=== PATIENT | male | born 1945 | race Caucasian/White ===

== ENCOUNTER → 2019-03-23 | Day surgery (SDC) | payer MEDICARE, OTHER ==
[2019-03-20 14:22] LABS: BASOPHILS % 0.4 % (0.0-1.0); EOSINOPHILS # (AUTO) 0.2 (0.0-0.4); EOSINOPHILS % 3.4 % (0.0-6.0); HEMATOCRIT 44.8 % (38.2-49.6); HEMOGLOBIN 15.6 g/dL (14.0-18.0); LYMPHOCYTES # (AUTO) 1.6 (1.0-3.2); LYMPHOCYTES % 22.9 % (18.0-39.1); MEAN CORPUSCULAR HEMOGLOBIN 31.3 pg (28-32); MEAN CORPUSCULAR HGB CONC 34.8 g/dL (31-35); MONOCYTES # (AUTO) 0.5 (0.2-0.8); MONOCYTES % 7.3 % (4.4-11.3); NEUTROPHILS # (AUTO) 4.5 (2.1-6.9); NEUTROPHILS % 65.4 % (38.7-80.0); PLATELET COUNT 218 x10e3/uL (140-360); RED BLOOD COUNT 4.98 x10e6/uL (4.3-5.7); RED CELL DISTRIBUTION WIDTH 12.7 % (11.7-14.4)
[~2019-03-23] MED LIST: ADVAIR 250-501 EACH INH; ALLOPURINOL100 MG PO; AMLODIPINE BESYL5 MG PO; ASPIR 8181 MG PO; ATORVASTATIN CA20 MG PO; FENTANYL CITRATE/PF 100MCG/2 ML INJ ONE; GABAPENTIN300 MG PO; GLUCAGON FOR INJ 1 MG VIAL ONE; HYDROCHLOROTHIA25 MG PO; HYOSCYAMINE SULFATE 0.5 MG/ML INJ ONE; MICARDIS40 MG PO; MIDAZOLAM HCL 2 MG/2 ML VIAL ONE; MONTELUKAST SOD10 MG PO; MULTI-VITAMIN1 EACH PO; PRAMIPEXOLE DIHY1 MG PO; PROPOFOL IV EMULSION 10 MG/ML 50 ML VIAL ONE
--- OUTSIDE RECORDS SUMMARY | 2019-03-23 11:58 | XMS REPORT | Clinical Summary ---
Author Author [facility] Organization [facility] Address Unknown Phone Unavailable Care Team Providers Care [employer]s Recruiter Name Role Phone Bonnie Reeder MD PCP Allergies Comments Active Allergy Reactions Severity Noted Date IV Contrast Other Diarrhea, GI Low 09/06/2017 Intolerance Medications End Date Status Medication Sig Dispensed Refills Start Date Active hydrochlorothiazide Take 25 mg by 0 (HYDRODIURIL) 25 MG mouth once 6 tablet daily. Active multivitamin (THERAGRAN) Take 1 tablet 0 tablet by mouth daily. 06/26/2019 Active gabapentin (NEURONTIN) Take 1 tablet 90 tablet 3 600 mg tabletIndications: (600 mg 8 Neuropathy total) by mouth nightly. Active aspirin (ECOTRIN) 81 MG Take 81 mg by 0 enteric coated tablet mouth daily. 10/01/2019 Active telmisartan (MICARDIS) 40 Take 1 tablet 30 tablet 1 MG tablet (40 mg total) 9 by mouth daily. Active albuterol (ACCUNEB) 2.5 0 mg /3 mL (0.083 %) 9 nebulizer solution 11/21/2019 Active albuterol (PROAIR Inhale 2 1 Inhaler 6 HFA,PROVENTIL puffs every 6 9 HFA,VENTOLIN HFA) 90 (six) hours mcg/actuation as needed for inhalerIndications: Mild wheezing or intermittent asthma, shortness of unspecified whether breath. complicated Active amLODIPine (NORVASC) 5 mg daily. 0 tablet 9 12/10/2019 Active montelukast (SINGULAIR) Take 1 tablet 30 tablet 11 10 mg tablet (10 mg total) 9 by mouth nightly. Active fluticasone USE 1 180 each 3 propion-salmeterol INHALATION 9 (ADVAIR DISKUS) 250-50 TWICE A DAY mcg/dose DISKUSIndications: SOB (shortness of breath) Active atorvastatin (LIPITOR) 40 Take 1 tablet 90 tablet 3 MG tablet (40 mg total) 9 by mouth daily. Active pramipexole (MIRAPEX) 0.5 Take 1 tablet 150 tablet 3 MG tablet (0.5 mg) by 9 mouth in the morning and 1 tablet (0.5 mg) in noon, and 3 tablets (1.5 mg) at evening. 03/06/2019 Discontinued allopurinol (ZYLOPRIM) Take 100 mg 5 100 MG tablet by mouth once 6 daily. 06/26/2018 Discontinued gabapentin (NEURONTIN) TAKE 1 TO 2 5 300 MG capsule CAPSULES BY 6 MOUTH 3 TIMES A DAY 10/01/2018 Discontinued losartan (COZAAR) 50 MG Take 50 mg by 3 tablet mouth once 6 daily. 06/26/2018 Discontinued albuterol (ACCUNEB) 2.5 as needed. 0 mg /3 mL (0.083 %) 7 nebulizer solution 09/14/2018 atorvastatin (LIPITOR) 40 Take 1 tablet 30 tablet 3 MG tablet (40 mg total) 7 by mouth daily. 11/06/2018 amLODIPine (NORVASC) 5 mg Take 1 tablet 60 tablet 2 tablet (5 mg total) 8 by mouth daily. 05/31/2018 Discontinued ADVAIR DISKUS 250-50 USE 1 180 each 0 mcg/dose DISKUS INHALATION 8 TWICE A DAY 06/26/2018 Discontinued pramipexole (MIRAPEX) 0.5 PO QHS 90 tablet 11 MG tablet 8 09/26/2018 Discontinued fluticasone-salmeterol USE 1 180 each 0 (ADVAIR DISKUS) 250-50 INHALATION 8 mcg/dose DISKUS TWICE A DAY 06/26/2018 Discontinued fluticasone-salmeterol Inhale 2 0 (ADVAIR DISKUS) 250-50 puffs. 8 mcg/dose DISKUS 01/29/2019 Discontinued pramipexole (MIRAPEX) 1 Take 1 tablet 90 tablet 3 MG tabletIndications: RLS (1 mg total) 8 (restless legs syndrome) by mouth nightly. 01/31/2019 Discontinued fluticasone-salmeterol USE 1 180 each 0 (ADVAIR DISKUS) 250-50 INHALATION 9 mcg/dose TWICE A DAY DISKUSIndications: SOB (shortness of breath) 10/01/2018 Discontinued telmisartan (MICARDIS) 40 Take 1 tablet 90 tablet 3 MG tablet (40 mg total) 9 by mouth daily. 12/05/2018 Discontinued methylPREDNISolone 0 (MEDROL DOSEPAK) 4 mg 9 tablet 01/29/2019 Discontinued furosemide (LASIX) 20 mg 0 tablet 9 12/25/2018 Discontinued GUAIATUSSIN AC 10-100 0 mg/5 mL liquid 9 02/19/2019 Discontinued atorvastatin (LIPITOR) 40 0 MG tablet 9 11/26/2018 predniSONE (DELTASONE) 50 Take 1 tablet 5 tablet 0 mg tabletIndications: (50 mg total) 9 Mild intermittent asthma, by mouth unspecified whether daily for 5 complicated days. 12/05/2018 benzonatate (TESSALON) Take 1 42 capsule 0 200 MG capsule (200 9 capsuleIndications: Cough mg total) by mouth 3 (three) times a day as needed for cough for up to 14 days. 12/25/2018 Discontinued budesonide (RHINOCORT 2 sprays into 1 Bottle 3 ALLERGY) 32 mcg/actuation each nostril 9 nasal sprayIndications: daily. Post-nasal drip 02/20/2019 Discontinued pramipexole (MIRAPEX) 0.5 Take 1 tablet 150 tablet 0 MG tablet (0.5 mg) by 9 mouth in the morning and 1 tablet (0.5 mg) in noon, and 3 tablets (1.5 mg) at evening. 02/01/2019 Discontinued fluticasone USE 1 180 each 3 propion-salmeterol INHALATION 9 (ADVAIR DISKUS) 250-50 TWICE A DAY mcg/dose DISKUSIndications: SOB (shortness of breath) Active Problems Problem Noted Date Dilated aortic root 09/06/2017 Essential hypertension 08/22/2016 COPD (chronic obstructive pulmonary disease) 08/22/2016 Chest pain, atypical 08/22/2016 Cervical radiculopathy 08/22/2016 Mild intermittent asthma without complication 08/22/2016 Neuropathy of left phrenic nerve 08/22/2016 Calculus of kidney 08/22/2016 Benign non-nodular prostatic hyperplasia without lower urinary tract 08/22/2016 symptoms History of back surgery 08/22/2016 Obstructive sleep apnea Periodic limb movement disorder (PLMD) Prediabetes Hypertension Asthma Encounters Care Team Description Date Type Specialty Nadja Blum MD SOB (shortness of breath) (Primary Dx); Peripheral edema; Essential hypertension; Chronic bronchitis, unspecified chronic bronchitis type (HCC); Mild intermittent asthma without complication; Chest pain, atypical; Neuropathy of left phrenic nerve; Dilated aortic root (HCC); Benign non-nodular prostatic hyperplasia without lower urinary tract symptoms; Abdominal pain, unspecified abdominal location; Cervical radiculopathy; History of back surgery 03/06/2019 Office Visit Cardiology Sue Vance NP-C 02/26/2019 Telephone Neurology Delmi Stark MD 02/25/2019 Telephone Neurology Sue Vance NP-C 02/20/2019 Orders Only Neurology Delmi Stark MD 02/20/2019 Telephone Neurology Nadja Blum MD teleph 02/19/2019 Telephone Cardiology Janiya Nj [employer] II SOB (shortness of breath) 02/01/2019 Orders Only Pulmonology Janiya Nj [employer] II SOB (shortness of breath) 01/31/2019 Orders Only Pulmonology Sue Vance NP-C AMBER (obstructive sleep apnea) (Primary Dx) 01/29/2019 Office Visit Neurology Pascual Parks MD 01/29/2019 Telephone Pulmonology Pascual Parks MD 01/28/2019 Telephone Pulmonology Pascual Parks MD Moderate persistent asthma without complication 01/15/2019 Hospital Pulmonology Encounter Pascual Parks MD Moderate persistent asthma without complication (Primary Dx) 01/07/2019 Office Visit Pulmonology Delmi Stark MD Chronic sinusitis, unspecified location (Primary Dx); AMBER (obstructive sleep apnea); Peripheral polyneuropathy 12/25/2018 Office Visit Neurology Pascual Parks MD 12/19/2018 Telephone Pulmonology Pascual Parks MD Abnormal CXR (Primary Dx); Chronic obstructive asthma with acute exacerbation (HCC) 12/18/2018 Office Visit Pulmonology Pacsual Parks MD Chronic obstructive asthma with acute exacerbation (HCC) (Primary Dx) 12/10/2018 Office Visit Pulmonology Nadja Blum MD SOB (shortness of breath) (Primary Dx); Essential hypertension; Chronic bronchitis, unspecified chronic bronchitis type (HCC); Mild intermittent asthma without complication; Chest pain, atypical; Neuropathy of left phrenic nerve; Dilated aortic root (HCC); Benign non-nodular prostatic hyperplasia without lower urinary tract symptoms 12/05/2018 Office Visit Cardiology Bonnie Reeder MD 11/23/2018 Telephone Access Bonnie Reeder MD Mild intermittent asthma, unspecified whether complicated (Primary Dx); Bronchitis; Cough; Post-nasal drip 11/21/2018 Office Visit Family Medicine Brittany Rausch MA Med Refill 10/01/2018 Refill Cardiology Brittany Rausch MA Med Refill 10/01/2018 Refill Cardiology Delmi Stark MD SOB (shortness of breath) (Primary Dx) 09/26/2018 Telephone Neurology Nadja Blum MD Liver cyst; Abnormal abdominal ultrasound 08/13/2018 Hospital Radiology Encounter Brittany Rausch MA Liver cyst (Primary Dx); Abnormal abdominal ultrasound 08/10/2018 Orders Only Cardiology Brittany Rausch MA Liver cyst (Primary Dx); Abnormal abdominal ultrasound 08/07/2018 Orders Only Cardiology Nadja Blum MD Abdominal pain, unspecified abdominal location 07/31/2018 Hospital Radiology Encounter Nadja Blum MD Abdominal pain, unspecified abdominal location (Primary Dx); Essential hypertension; Chronic bronchitis, unspecified chronic bronchitis type (HCC); Mild intermittent asthma without complication; Benign non-nodular prostatic hyperplasia without lower urinary tract symptoms; Cervical radiculopathy; History of back surgery; Calculus of kidney; Chest pain, atypical; Neuropathy of left phrenic nerve; 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 06/05/2018 Telephone Cardiology Sue Vance NP-C 05/31/2018 Orders Only Neurology Delmi Stark MD 05/30/2018 Telephone Neurology Sue Vance NP-C 05/08/2018 Telephone Neurology Kenisha Bundy MD Monoclonal gammopathies 04/24/2018 Hospital Radiology Encounter Kenisha Bundy MD Monoclonal gammopathies (Primary Dx) 04/24/2018 Transcribe Access Orders Delmi Stark MD Abnormal serum protein test (Primary Dx) 04/12/2018 Office Visit Neurology after 03/22/2018 Family History Medical History Relation Name Comments Heart attack Father Cancer Maternal jaw Grandfather Heart attack Maternal Grandmother Glaucoma Mother Lymphoma Mother Osteoporosis Mother No Known Problems Paternal Grandfather No Known Problems Paternal Grandmother Relation Name Status Comments Father Maternal Grandfather Maternal Grandmother Mother Alive Paternal Grandfather Paternal Grandmother Social History Date Tobacco Use Types Packs/Day Years Used Quit: 2004 Former Smoker Cigarettes 1 Smokeless Tobacco: Never Used Alcohol Use Drinks/Week oz/Week Comments No Sex Assigned at Date Recorded Not on file Industry Job Start Date Occupation Not on file Not on file Not on file Travel End Travel History Travel Start No recent travel history available. Last Filed Vital Signs Time Taken Vital Sign Reading 03/06/2019 11:09 AM CDT Blood Pressure 120/68 03/06/2019 11:09 AM CDT Pulse 76 01/29/2019 9:14 AM CDT Temperature 36.8 C (98.3 F) 01/29/2019 9:14 AM CDT Respiratory Rate 20 03/06/2019 11:09 AM CDT Oxygen Saturation 95% - Inhaled Oxygen - Concentration 03/06/2019 11:09 AM CDT Weight 116 kg (255 lb) 03/06/2019 11:09 AM CDT Height 172.7 cm (5' 8") 03/06/2019 11:09 AM CDT Body Mass Index 38.77 Plan of Treatment Care Team Description Date [place] [address] [place] [address] [address] [place] [address] [phone] 04/09/2019 Office [place] [address] [place] [address] [address] [place] [address] [phone] 05/06/2019 Office [place] [address] [place] [address] [address] [place] [address] [phone] 05/09/2019 Office Visit Neurology Health Maintenance Due Date Last Done Comments COLONOSCOPY SCREENING 1995 SHINGLES VACCINES (#1) 1995 65+ PNEUMOCOCCAL VACCINE 2010 (1 of 2 - PCV13) INFLUENZA VACCINE 04/25/2019 06/29/2018 Procedures Comments Procedure Name Priority Date/Time Associated Diagnosis SPIROMETRY PRE AND POST Routine 01/15/2019 Moderate persistent WITH BRONCHILATOR, 2:46 PM CDT asthma without DIFFUSION, LUNG VOLUMES complication CT CHEST WO CONTRAST Routine 12/25/2018 Abnormal CXR 11:[address] SINUS WO CONTRAST Routine 12/25/2018 Chronic sinusitis, 11:48 AM CDT unspecified location IMMUNOGLOBULIN E Routine 12/18/2018 Chronic obstructive 11:50 AM CDT asthma with acute exacerbation (HCC) CBC WITH PLATELET AND Routine 12/18/2018 Chronic obstructive DIFFERENTIAL 11:50 AM CDT asthma with acute exacerbation (HCC) GRAM STAIN Routine 12/05/2018 1:14 PM CDT ESTIMATED GFR Routine 12/05/2018 1:09 PM CDT COMPREHENSIVE METABOLIC Routine 12/05/2018 SOB (shortness of breath) PANEL 1:09 PM CDT CBC HEMOGRAM Routine 12/05/2018 SOB (shortness of breath) 1:09 PM CDT B NATRIURETIC PEPTIDE Routine 12/05/2018 SOB (shortness of breath) 1:09 PM CDT URINE CULTURE SCREEN Routine 12/05/2018 1:09 PM CDT XR CHEST 2 VW Routine 11/21/2018 Bronchitis 10:46 AM [facility] Cough POC CREATININE Routine 08/13/2018 12:13 PM [facility] [employer] ESTIMATED GFR Routine 08/13/2018 12:[address] ABDOMEN W CONTRAST Routine 08/13/2018 Liver cyst 11:40 AM [facility] [employer] Abnormal abdominal ultrasound US ABDOMEN COMPLETE Routine 07/31/2018 Abdominal pain, 9:52 AM [facility] [employer] unspecified abdominal location CT ANGIOGRAM CHEST W WO Routine 07/03/2018 Thoracic ascending aortic CONTRAST 1:02 PM CDT aneurysm (HCC) ZZESTIMATED GFR Routine 06/04/2018 9:14 AM CDT COMPREHENSIVE METABOLIC Routine 06/04/2018 Tiredness PANEL 9:14 AM CDT Decreased libido Asymptomatic bacteriuria in , with delivery CBC HEMOGRAM Routine 06/04/2018 Tiredness 9:14 AM CDT Decreased libido Asymptomatic bacteriuria in , with delivery TESTOSTERONE Routine 06/04/2018 Tiredness 9:14 AM CDT Decreased libido Asymptomatic bacteriuria in , with delivery XR BONE SURVEY SKELETAL Routine 04/24/2018 Monoclonal gammopathies 11:48 AM CDT IMMUNOFIXATION, SERUM Routine 04/12/2018 Abnormal serum protein 10:16 AM CDT test IMMUNOFIXATION, URINE Routine 04/12/2018 Abnormal serum protein 10:16 AM CDT test after 03/22/2018 Results * Spirometry pre & post w/ bronchodilator, diffusion, lung volumes (01/15/2019 2:46 PM CDT) FEV1 Post 1.77 2.25 - 3.78 L [facility] FEV1/FVC % Post 81.01 63.31 - 82.66 % [facility] FVC Post 2.19 3.24 - 5.05 L [facility] PEF Post 7.35 5.57 - 10.08 L/s [facility] FEF 25-75% Post 1.95 0.68 - 3.78 L/s [facility] R0.5IN Pre 1.52 3.06 - 3.06 [facility] cmH2O*s/L FRCpl Pre 2.10 2.68 - 4.66 L [facility] RV Pre 2.10 2.00 - 3.35 L [facility] TLC Pre 4.02 5.77 - 8.07 L [facility] RV % TLC Pre 52.16 33.45 - 51.41 % [facility] VC Pre 1.93 3.24 - 5.05 L [facility] ERV Pre 0.00 1.00 - 1.00 L [facility] IC Pre 1.92 3.00 - 3.00 L [facility] sR0.5IN Pre 3.95 cmH2O*s [facility] Raw Pre 4.63 3.06 - 3.06 [facility] cmH2O*s/L sGaw Predicted 0.08 0.08 - 0.08 [facility] 1/(cmH2O*s) FEV1 Pre 1.66 2.25 - 3.78 L [facility] FEV1/FVC % Pre 79.20 63.31 - 82.66 % [facility] FVC Pre 2.10 3.24 - 5.05 L [facility] PEF Pre 7.12 5.57 - 10.08 L/s [facility] FEF 25-75% Pre 1.55 0.68 - 3.78 L/s [facility] DLCO Pre 16.62 17.08 - 33.01 [facility] ml/(min*mmHg) DL/VA Pre 4.68 2.70 - 5.10 [facility] ml/(min*mmHg*L) VA SB Pre 3.55 5.26 - 7.99 L [facility] FEV1 Predicted 3.02 [facility] FEV1 LLN 2.25 [facility] FEV1 % Pre of 55.0 % [facility] Predicted FEV1 % Post of 58.7 % [facility] Predicted FEV1 % Change 6.7 % [facility] FVC Predicted 4.15 [facility] FVC LLN 3.24 [facility] FVC % Pre of 50.6 % [facility] Predicted FVC % Post of 52.7 % [facility] Predicted FVC % Change 4.3 % [facility] FEV1/FVC % 73 [facility] Predicted FEV1/FVC % LLN 63 [facility] FEV1/FVC % Pre 108.5 % [facility] of Predicted FEV1/FVC % Post 111.0 % [facility] of Predicted FEV1/FVC % 2.3 % [facility] Change FEF 25-75% 2.23 [facility] Predicted FEF 25-75% LLN 0.68 [facility] FEF 25-75% % 69.5 % [facility] Pre of Predicted FEF 25-75% % 87.5 % [facility] Post of Predicted FEF 25-75% % 25.9 % [facility] Change PEF Predicted 7.83 [facility] PEF LLN 5.57 [facility] PEF % Pre of 91.0 % [facility] Predicted PEF % Post of 94.0 % [facility] Predicted PEF % Change 3.2 % [facility] VC Predicted 4.15 [facility] VC LLN 3.24 [facility] VC % Pre of 46.4 % [facility] Predicted ERV Predicted 1.00 [facility] ERV LLN 1.00 [facility] ERV % Pre of 0.1 % [facility] Predicted FRCpl % 3.67 [facility] Predicted FRCpl % LLN 2.68 [facility] FRCpl % Pre of 57.3 % [facility] Predicted IC Predicted 3.00 [facility] IC LLN 3.00 [facility] IC % Pre of 64.1 % [facility] Predicted RV Predicted 2.67 [facility] RV LLN 2.00 [facility] RV % Pre of 78.6 % [facility] Predicted RV % TLC 42 [facility] Predicted RV % TLC LLN 33 [facility] RV % TLC % Pre 122.9 % [facility] of Predicted TLC Predicted 6.92 [facility] TLC LLN 5.77 [facility] TLC % Pre of 58.1 % [facility] Predicted Raw Predicted 3.06 [facility] Raw LLN 3.06 [facility] Raw % Pre of 151.4 % [facility] Predicted R0.5IN 3.06 [facility] Predicted R0.5IN LLN 3.06 [facility] R0.5IN % Pre of 49.7 % [facility] Predicted sGaw Predicted 0.08 [facility] sGaw LLN 0.08 [facility] sGaw % Pre of 99.6 % [facility] Predicted DLCO Predicted 25.04 [facility] DLCO LLN 17.08 [facility] DLCO % Pre of 66.4 % [facility] Predicted DL/VA Predicted 3.90 [facility] DL/VA LLN 2.70 [facility] DL/VA % Pre of 120.0 % [facility] Predicted VA SB Predicted 6.63 [facility] VA SB LLN 5.26 [facility] VA SB % Pre of 53.6 % [facility] Predicted Specimen Narrative Performed At Performing Organization Address City/State/Zipcode Phone Number [facility] [address] [place] [address] * CT Chest Wo Contrast (12/25/2018 11:50 AM CDT) Specimen Narrative Performed At EXAMINATION:CT CHEST WO CONTRAST [facility] CLINICAL HISTORY:R93.89 Abnormal findings on diagnostic imaging of other specified body structures, abnormal cxr COMPARISON:None. TECHNIQUE:CT of the chest without intravenous contrast. Absence of contrast decreases sensitivity for detection of focal lesions and vascular pathology. CT imaging was performed with iterative reconstruction techniques and/or automated exposure control to reduce radiation dose. FINDINGS: LUNGS and PLEURA:There is mild to moderate elevation of the left hemidiaphragm which has been present dating back to 2014 chest x-ray. There is adjacent compressive atelectasis in the left lower lobe. There are some mild nonspecific patchy areas of groundglass attenuation in the perihilar right upper lobe and right lower lobe, was present on priors. No new consolidation, effusion or central airway abnormality. Calcified mediastinal and hilar lymph nodes and left lung granulomas from previous granulomatous disease. HEART and MEDIASTINUM:Main pulmonary artery is dilated measuring 3.9 cm. There is stable fusiform dilation of the ascending thoracic aorta which measures 4.5 cm. Prominent coronary artery calcifications. Mild cardiac enlargement. Evaluation for adenopathy limited without contrast. ABDOMEN:Limited unenhanced images of the upper abdomen demonstrate hepatic and splenic granulomas. Scattered hepatic cysts, largest measures 5 cm with a thin internal septation. Cholecystectomy clips. Calyceal stone left kidney. BONES and SOFT TISSUES:Degenerative changes in the spine. IMPRESSION: 1.Chronic mild to moderate elevation of the left hemidiaphragm with adjacent left basilar atelectasis. 2.Mild nonspecific areas of groundglass attenuation on the right, stable. 3.No acute consolidation or effusion. 4.Stable aneurysmal dilatation of the ascending thoracic aorta measures 4.5 cm. Prominent main pulmonary artery can be seen in pulmonary hypertension. Please correlate. 5.Advanced coronary artery calcifications. 6.Additional findings as above. [id number] Procedure Note Hm Interface, Radiology Results Incoming - 12/25/2018 1:12 PM CDT EXAMINATION: CT CHEST WO CONTRAST CLINICAL HISTORY: R93.89 Abnormal findings on diagnostic imaging of other specified body structures, abnormal cxr COMPARISON: None. TECHNIQUE: CT of the chest without intravenous contrast. Absence of contrast decreases sensitivity for detection of focal lesions and vascular pathology. CT imaging was performed with iterative reconstruction techniques and/or automated exposure control to reduce radiation dose. FINDINGS: LUNGS and PLEURA: There is mild to moderate elevation of the left hemidiaphragm which has been present dating back to 2014 chest x-ray. There is adjacent compressive atelectasis in the left lower lobe. There are some mild nonspecific patchy areas of groundglass attenuation in the perihilar right upper lobe and right lower lobe, was present on priors. No new consolidation, effusion or central airway abnormality. Calcified mediastinal and hilar lymph nodes and left lung granulomas from previous granulomatous disease. HEART and MEDIASTINUM: Main pulmonary artery is dilated measuring 3.9 cm. There is stable fusiform dilation of the ascending thoracic aorta which measures 4.5 cm. Prominent coronary artery calcifications. Mild cardiac enlargement. Evaluation for adenopathy limited without contrast. ABDOMEN: Limited unenhanced images of the upper abdomen demonstrate hepatic and splenic granulomas. Scattered hepatic cysts, largest measures 5 cm with a thin internal septation. Cholecystectomy clips. Calyceal stone left kidney. BONES and SOFT TISSUES: Degenerative changes in the spine. IMPRESSION: 1. Chronic mild to moderate elevation of the left hemidiaphragm with adjacent left basilar atelectasis. 2. Mild nonspecific areas of groundglass attenuation on the right, stable. 3. No acute consolidation or effusion. 4. Stable aneurysmal dilatation of the ascending thoracic aorta measures 4.5 cm. Prominent main pulmonary artery can be seen in pulmonary hypertension. Please correlate. 5. Advanced coronary artery calcifications. 6. Additional findings as above. [id number] Performing Organization Address City/State/Zipcode Phone Number [facility] [address] [place] [address] * CT Sinus Wo Contrast (12/25/2018 11:48 AM CDT) Specimen Narrative Performed At EXAMINATION:CT SINUS WO CONTRAST [facility] CLINICAL HISTORY:J32.9 Chronic sinusitisunspecified, Chronic sinusitis COMPARISON:None. TECHNIQUE: Axial helical CT images throughout the paranasal sinuses were performed without IV contrast. Sagittal and coronal reformatted images were generated. All CT images were acquired using low-dose technique with automated exposure control. FINDINGS: There is mild mucosal thickening in the medial inferior aspect of the right frontal sinus. The left frontal sinus is clear. The frontoethmoid recesses are patent. There is mild mucosal thickening in the anterior and posterior ethmoid air cells bilaterally. The sphenoid sinus is normally developed and well aerated. The sphenoethmoidal recesses are clear. Carotid and optic canals are covered by bone. There is mild mucosal thickening with the frothy secretions mainly in the right axillary sinus. The maxilla sinuses bilaterally are hypoplastic. The estimated units bilaterally are patent. There is no air-fluid level. The nasal cavity is clear. There is no significant nasal septal deviation. Visualized brain, orbits, and soft tissues are unremarkable. There is a small benign osseous hemangioma in the right parietal calvarium. IMPRESSION: Mild mucosal thickening in the frontal, ethmoid and maxillary sinuses. Hypoplasia of the maxillary sinuses bilaterally. [id number] Procedure Note Interface, Radiology Results - 12/25/2018 12:58 PM CDT EXAMINATION: CT SINUS WO CONTRAST CLINICAL HISTORY: J32.9 Chronic sinusitis unspecified, Chronic sinusitis COMPARISON: None. TECHNIQUE: Axial helical CT images throughout the paranasal sinuses were performed without IV contrast. Sagittal and coronal reformatted images were generated. All CT images were acquired using low-dose technique with automated exposure control. FINDINGS: There is mild mucosal thickening in the medial inferior aspect of the right frontal sinus. The left frontal sinus is clear. The frontoethmoid recesses are patent. There is mild mucosal thickening in the anterior and posterior ethmoid air cells bilaterally. The sphenoid sinus is normally developed and well aerated. The sphenoethmoidal recesses are clear. Carotid and optic canals are covered by bone. There is mild mucosal thickening with the frothy secretions mainly in the right axillary sinus. The maxilla sinuses bilaterally are hypoplastic. The estimated units bilaterally are patent. There is no air-fluid level. The nasal cavity is clear. There is no significant nasal septal deviation. Visualized brain, orbits, and soft tissues are unremarkable. There is a small benign osseous hemangioma in the right parietal calvarium. IMPRESSION: Mild mucosal thickening in the frontal, ethmoid and maxillary sinuses. Hypoplasia of the maxillary sinuses bilaterally. [id number] Performing Organization Address City/State/Zipcode Phone Number [facility] [address] [place] [address] * CBC with platelet and differential (12/18/2018 11:50 AM CDT) WBC 8.1 3.8 - 10.8 [facility] Thousand/uL [facility] RBC 4.89 4.20 - 5.80 [facility] Million/uL [facility] HGB 14.7 13.2 - 17.1 g/dL [facility] HCT 43.7 38.5 - 50.0 % [facility] MCV 89.4 80.0 - 100.0 fL [facility] MCH 30.1 27.0 - 33.0 pg [facility] MCHC 33.6 32.0 - 36.0 g/dL [facility] RDW 13.4 11.0 - 15.0 % [facility] Platelet count 210 140 - 400 [facility] Thousand/uL [facility] MPV 10.4 7.5 - 12.5 fL [facility] Neutrophils, 5,200 1,500 - 7,800 [facility] absolute cells/uL [facility] Lymphocytes, 2,211 850 - 3,900 cells/uL [facility] Monocytes, 583 200 - 950 cells/uL [facility] Eosinophils, 89 15 - 500 cells/uL [facility] Basophils, 16 0 - 200 cells/uL [facility] Neutrophils 64.2 % [facility] Lymphocytes 27.3 % [facility] Monocytes 7.2 % [facility] Eosinophils 1.1 % [facility] Basophils + RC 0.2 % [facility] Nucleated RBC Comment: [facility] Review of peripheral smear DIAGNOSTICS confirms [facility] automated results. Specimen Blood Resulting Agency Comment Performing Organization Information: Site ID: [id number] Name: [facility] Address: [address] [place] [id number] Director: Ania Baird Performing Organization Address City/[facility] Phone Number [facility] [employer] [facility] [address] [place] [id number] * Immunoglobulin E (12/18/2018 11:50 AM CDT) [facility] IgE 26 <[id number] kU/L [facility] II Specimen Blood Resulting Agency Comment Performing Organization Information: Site ID: [id number] Name: [facility] Address: [address] [place] [id number] Director: Dr. Miguel Villafana Performing Organization Address City/[facility] Hospitalcode Phone Number [employer] [place] [address] II * Gram stain (12/05/2018 1:14 PM CDT) [facility] Gram stain No WBC's or organisms seen. [facility] result Comment: YAZIDISM Specimen Information HOSPITAL Specimen Source: Urine Specimen Site: Clean catch Specimen Urine Performing Organization Address City/[facility] Phone Number [facility] DEPARTMENT OF [address] [place] [address] PATHOLOGY AND GENOMIC MEDICINE [facility] [address] [place] [address] HOSPITAL * Estimated GFR (12/05/2018 1:09 PM CDT) Only the most recent of 2 results within the time period is included. [facility] Estimated GFR 88 mL/min/1.73 m2 [facility] Comment: [facility]ISMWAYNE [facility] G1 >=90 Normal or high G2 60-89Mildly decreased [id number] Mildly to moderately decreased [id number] Moderately to severely decreased G4 15-29Severely decreased G5 <15Kidney failure The eGFR was calculated using the Chronic Kidney Disease Epidemiology Collaboration (CKD-EPI) equation. Interpretation is based on recommendations of the National Kidney Foundation-Kidney Disease Outcomes Quality Initiative (NKF-KDOQI) published in 2014. Specimen Plasma specimen Performing Organization Address City/State/Zipcode Phone Number [facility] DEPARTMENT OF [address] [place] [address] PATHOLOGY AND GENOMIC MEDICINE [id number] [place] [address] * Urine culture screen (12/05/2018 1:09 PM CDT) Pathologist [facility] Urine culture Mixed rosalia <=10-3 col/cc [facility] isolate Comment: YAZIDISM Specimen Information HOSPITAL Specimen Source: Urine Specimen Site: Clean catch Specimen Urine Performing Organization Address [facility] Hospitalcode Phone Number [facility] DEPARTMENT OF [address] [place] [address] PATHOLOGY AND GENOMIC MEDICINE [address] * CBC hemogram (12/05/2018 1:09 PM CDT) Only the most recent of 2 results within the time period is included. Pathologist [facility] WBC 6.9 4.2 - 11.0 k/uL [facility] RBC 4.86 4.04 - 5.86 m/uL [facility] HGB 14.8 13.0 - 17.3 g/dL [facility] HCT 45.0 34.0 - 45.0 % [facility] MCV 92.6 80.0 - 98.0 fL [facility] MCH 30.5 27.0 - 34.0 pg [facility] MCHC 32.9 31.5 - 36.5 g/dL [facility] RDW - SD 44.5 37.0 - 51.0 fL [facility] MPV 10.3 7.4 - 10.4 fL [facility] Platelet count 166 150 - 400 k/uL [facility] Nucleated RBC 0.00 /100 WBC [facility] Specimen Blood Performing Organization Address City/[facility]/Zipcode Phone Number [facility] DEPARTMENT OF [address] [place] [address] PATHOLOGY AND GENOMIC MEDICINE [facility] [address] * B natriuretic peptide (12/05/2018 1:09 PM CDT) Pathologist [facility] BNP 4 0 - 100 pg/mL [facility] Specimen Blood Performing Organization Address City/[facility]code Phone Number [facility] DEPARTMENT [facility] [place] [address] PATHOLOGY AND GENOMIC MEDICINE [facility] Jane Mario Rojas [address] * Comprehensive metabolic panel (12/05/2018 1:09 PM CDT) Only the most recent of 2 results within the time period is included. [facility] Sodium 142 135 - 150 mEq/L [facility] Potassium 3.7 3.5 - 5.0 mEq/L [facility] Chloride 98 98 - 112 mEq/L [facility] CO2 33 (H) 24 - 31 mmol/L [facility] Anion gap 11@ANIO 7 - 15 mEq/L [facility] BUN 17 7 - 18 mg/dL [facility] Creatinine 0.80 0.70 - 1.20 mg/dL [facility] Glucose 118 (H) 65 - 100 mg/dL [facility] Calcium 9.9 8.8 - 10.2 mg/dL [facility] Protein 7.3 6.3 - 8.3 g/dL [facility] Albumin 3.8 3.5 - 5.0 g/dL [facility] A/G ratio 1.1 0.7 - 3.8 [facility] Alkaline 84 0 - 129 U/L [facility] phosphatase [facility] AST 29 10 - 50 U/L [facility] ALT 48 5 - 50 U/L [facility] Total bilirubin 0.5 0.2 - 1.2 mg/dL [facility] Specimen Plasma specimen Performing Organization Address City/[facility]code Phone Number [facility] DEPARTMENT OF [address] [place] [address] PATHOLOGY AND GENOMIC MEDICINE [facility] [address] * XR Chest 2 Vw (11/21/2018 10:46 AM [facility]) Specimen Narrative Performed At TWO VIEW CHEST, [facility]21[facility]2018 [facility] Clinical history:Cough; shortness of breath. Technique: PA and lateral views chest. Comparison: None DISCUSSION: Left hemidiaphragm elevation. Mild bibasilar subsegmental atelectasis. No pleural effusions. Cardiomegaly with tortuous thoracic aorta. Pulmonary vasculature is normal.The skeleton is grossly intact. Cervical fusion hardware. IMPRESSION: 1.Chronic left hemidiaphragm elevation. 2.Stable cardiomegaly and aortic tortuosity with mild central vascular congestion. Procedure Note Interface, Radiology Results Incoming - 11/21/2018 10:52 AM [facility] TWO VIEW CHEST, 11/21/2018 Clinical history: Cough; shortness of breath. Technique: PA and lateral views chest. Comparison: None DISCUSSION: Left hemidiaphragm elevation. Mild bibasilar subsegmental atelectasis. No pleural effusions. Cardiomegaly with tortuous thoracic aorta. Pulmonary vasculature is normal. The skeleton is grossly intact. Cervical fusion hardware. IMPRESSION: 1. Chronic left hemidiaphragm elevation. 2. Stable cardiomegaly and aortic tortuosity with mild central vascular congestion. Performing Organization Address City/[facility]/Zipcode Phone Number [facility] [address] [place] [address] * POC creatinine (08/13/2018 12:13 PM [facility]) POC creatinine 0.8 0.7 - 1.2 mg/dl [facility] Specimen Blood Performing Organization Address City/State/Zipcode Phone Number [facility] DE[facility] OF [address] [place] [address] PATHOLOGY AND GENOMIC MEDICINE [facility] Jane1 Mario Rojas [address] * CT Abdomen W Contrast (08/13/2018 11:40 AM [facility]) Specimen Narrative Performed At EXAMINATION:CT ABDOMEN W CONTRAST [facility] CLINICAL HISTORY:K76.89 Other specified diseases of liver, R93.5 Abnormal findings on diagnostic imaging of other abdominal regionsincluding retroperitoneum, Multiple liver cysts TECHNIQUE:Multiple axial images of the abdomen were obtained following intravenous administration of iodinated contrast. Sagittal and coronal computerized reformatted images were also obtained. COMPARISON:None. IMPRESSION: *Several simple appearing hepatic cysts within both lobes, the largest of which is seen within hepatic segment 4A and measures up to 5.3 x 3.9 cm. No further follow-up required. Additional tiny hypoattenuating foci are too small to characterize but likely also cysts. *Clear lung bases. Coronary artery, aortic root calcifications. Cholecystectomy. Spleen, pancreas, adrenal glands are unremarkable. Bilateral nonobstructing renal calculi measuring up to 6 mm within the left lower and 5 mm within the right lower pole renal collecting system. No hydronephrosis or hydroureter. *Stomach, visualized small and large bowel are within normal limits. Administered oral contrast has reached the colon. Moderate partly calcified plaque involving the abdominal aorta and major branch vessels. No significant free fluid or adenopathy. Osseous degenerative changes [facility]-[id number] Procedure Note Interface, Radiology Results Incoming - 08/13/2018 1:10 PM [facility] EXAMINATION: CT ABDOMEN W CONTRAST CLINICAL HISTORY: K76.89 Other specified diseases of liver, R93.5 Abnormal findings on diagnostic imaging of other abdominal regions including retroperitoneum, Multiple liver cysts TECHNIQUE:Multiple axial images of the abdomen were obtained following intravenous administration of iodinated contrast. Sagittal and coronal computerized reformatted images were also obtained. COMPARISON: None. IMPRESSION: * Several simple appearing hepatic cysts within both lobes, the largest of which is seen within hepatic segment 4A and measures up to 5.3 x 3.9 cm. No further follow-up required. Additional tiny hypoattenuating foci are too small to characterize but likely also cysts. * Clear lung bases. Coronary artery, aortic root calcifications. Cholecystectomy. Spleen, pancreas, adrenal glands are unremarkable. Bilateral nonobstructing renal calculi measuring up to 6 mm within the left lower and 5 mm within the right lower pole renal collecting system. No hydronephrosis or hydroureter. * Stomach, visualized small and large bowel are within normal limits. Administered oral contrast has reached the colon. Moderate partly calcified plaque involving the abdominal aorta and major branch vessels. No significant free fluid or adenopathy. Osseous degenerative changes [facility]-[id number] Performing Organization Address City/State/Zipcode Phone Number [facility] [address] [place] [address] * US Abdomen Complete (07/31/2018 9:52 AM [facility]) Specimen Narrative Performed At EXAM: US ABDOMEN COMPLETE [facility] CLINICAL DATA:R10.9 Unspecified abdominal pain, R O AAA COMPARISON: NONE. FINDINGS: LIVER:Multiple cysts are scattered throughout the liver. There may be some focal thickening of the septations especially in the superior left lobe of liver and further evaluation with MR or CT scanning with liver protocol would be of benefit. MPV:Doppler evaluation of the portal vein demonstrates normal hepatopedal flow. 1.1 cm GALLBLADDER:Gallbladder has been removed. CBD:4 mm , within normal limits. PANCREAS: Not visualized. SPLEEN: Visualized portions of the spleen demonstrate no definite abnormality. KIDNEYS: Mild renal cortical atrophy is present perhaps slightly more marked on the right side. A confluence of calculi are noted involving the lower pole left kidney, without evidence of hydronephrosis. AORTA:The visualized upper abdominal aorta demonstrates no evidence of ectasia or aneurysm. IVC:The visualized portions of the inferior vena cava are unremarkable. ASCITES: Very tiny amount of fluid may be present in the left upper abdomen. PLEURAL EFFUSION:There are no pleural effusions. IMPRESSION: Recommend MR or CT scanning with liver protocol. [id number] Procedure Note Interface, Radiology Results Incoming - 07/31/2018 10:01 AM [facility] EXAM: US ABDOMEN COMPLETE CLINICAL DATA: R10.9 Unspecified abdominal pain, R O AAA COMPARISON: NONE. FINDINGS: LIVER: Multiple cysts are scattered throughout the liver. There may be some focal thickening of the septations especially in the superior left lobe of liver and further evaluation with MR or CT scanning with liver protocol would be of benefit. MPV: Doppler evaluation of the portal vein demonstrates normal hepatopedal flow. 1.1 cm GALLBLADDER: Gallbladder has been removed. CBD: 4 mm , within normal limits. PANCREAS: Not visualized. SPLEEN: Visualized portions of the spleen demonstrate no definite abnormality. KIDNEYS: Mild renal cortical atrophy is present perhaps slightly more marked on the right side. A confluence of calculi are noted involving the lower pole left kidney, without evidence of hydronephrosis. AORTA: The visualized upper abdominal aorta demonstrates no evidence of ectasia or aneurysm. IVC: The visualized portions of the inferior vena cava are unremarkable. ASCITES: Very tiny amount of fluid may be present in the left upper abdomen. PLEURAL EFFUSION: There are no pleural effusions. IMPRESSION: Recommend MR or CT scanning with liver protocol. [id number] Performing Organization Address City/State/Zipcode Phone Number [facility] [address] [place] [address] * CTA Chest W Wo Contrast (07/03/2018 1:02 PM CDT) Specimen Narrative Performed At EXAMINATION:CT ANGIOGRAM CHEST W WO CONTRAST [facility] CLINICAL HISTORY:I71.2 Thoracic aortic aneurysmwithout rupture, Thoracic aortic aneurysm (TAA)knownfollow up, Ascending aortic aneurysm TECHNIQUE: Multiple CT angiographic images of the chest were obtained during intravenous administration of contrast. Multiple computerized reformatted images as well as 3-D volume rendered images were also obtained. CT scans are performed using radiation dose reduction techniques. Technical factors are evaluated and adjusted to ensure appropriate moderation of exposure. Automated dose management technology is applied to adjust radiation exposure while achieving a diagnostic quality image. COMPARISON:01/22/2018 and 08/14/2017 FINDINGS: Fusiform aneurysmal dilatation of the ascending thoracic aorta to maximal diameter of 45 mm is stable to previous examination. Evaluation of the aortic graft is limited as the CTA examination was not performed due to cardiac motion although there is stable aneurysmal dilatation also suspected of the aortic root to a diameter of 40 mm. Ectasia of the transverse arch diameter of 39 mm is stable. The descending thoracic aorta is normal in caliber and measures 37 mm. The aorta at the diaphragmatic hiatus measures 32 mm. There is no great vessel origin stenosis off the thoracic aortic arch. The left vertebral artery arises directly off the thoracic aortic arch, a variant of normal anatomy. Imaging of the abdominal aorta demonstrates the left hepatic artery to be replaced off the superior mesenteric artery, a variant of normal anatomy. The celiac and superior mesenteric arteries are widely patent. Heart size is mildly enlarged. There are calcifications in multiple coronary arteries. Dilatation of the main pulmonary artery is present to maximal diameter of 42 mm suggestive of pulmonary arterial hypertension. There are calcified hilar lymph nodes from previous granulomatous infection. No lymphadenopathy is present in the chest. There is no pleural effusion. Atelectasis is present within the dependent upper and lower lobes. Elevation of left hemidiaphragm with left basilar atelectasis is also noted. Imaging of the upper abdomen demonstrates multiple cysts within the liver, the largest in the medial left lobe measuring 5.4 x 3.7 cm. A 9 mm cyst is present in the upper pole of the left kidney. For simple cystic renal lesions 1 cm or less, follow-up imaging is not recommended per current ACR guidelines. There are degenerative changes within the thoracic spine. Postsurgical changes from cervical spine fusion are noted with hardware partially visualized. IMPRESSION: 1.Fusiform aneurysmal dilatation of the ascending thoracic aorta to maximal diameter of 45 mm is stable to CT from 08/14/2017. 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 2.Dilatation of the main pulmonary artery measuring 42 mm in diameter is also stable and suggestive of pulmonary arterial hypertension. [facility]-[id number] Procedure Note Hm Interface, Radiology Results Incoming - 07/03/2018 2:15 PM CDT EXAMINATION: CT ANGIOGRAM CHEST W WO CONTRAST CLINICAL HISTORY: I71.2 Thoracic aortic aneurysm without rupture, Thoracic aortic aneurysm (TAA) known follow up, Ascending aortic aneurysm TECHNIQUE: Multiple CT angiographic images of the chest were obtained during intravenous administration of contrast. Multiple computerized reformatted images as well as 3-D volume rendered images were also obtained. CT scans are performed using radiation dose reduction techniques. Technical factors are evaluated and adjusted to ensure appropriate moderation of exposure. Automated dose management technology is applied to adjust radiation exposure while achieving a diagnostic quality image. COMPARISON: 01/22/2018 and 08/14/2017 FINDINGS: Fusiform aneurysmal dilatation of the ascending thoracic aorta to maximal diameter of 45 mm is stable to previous examination. Evaluation of the aortic graft is limited as the CTA examination was not performed due to cardiac motion although there is stable aneurysmal dilatation also suspected of the aortic root to a diameter of 40 mm. Ectasia of the transverse arch diameter of 39 mm is stable. The descending thoracic aorta is normal in caliber and measures 37 mm. The aorta at the diaphragmatic hiatus measures 32 mm. There is no great vessel origin stenosis off the thoracic aortic arch. The left vertebral artery arises directly off the thoracic aortic arch, a variant of normal anatomy. Imaging of the abdominal aorta demonstrates the left hepatic artery to be replaced off the superior mesenteric artery, a variant of normal anatomy. The celiac and superior mesenteric arteries are widely patent. Heart size is mildly enlarged. There are calcifications in multiple coronary arteries. Dilatation of the main pulmonary artery is present to maximal diameter of 42 mm suggestive of pulmonary arterial hypertension. There are calcified hilar lymph nodes from previous granulomatous infection. No lymphadenopathy is present in the chest. There is no pleural effusion. Atelectasis is present within the dependent upper and lower lobes. Elevation of left hemidiaphragm with left basilar atelectasis is also noted. Imaging of the upper abdomen demonstrates multiple cysts within the liver, the largest in the medial left lobe measuring 5.4 x 3.7 cm. A 9 mm cyst is present in the upper pole of the left kidney. For simple cystic renal lesions 1 cm or less, follow-up imaging is not recommended per current ACR guidelines. There are degenerative changes within the thoracic spine. Postsurgical changes from cervical spine fusion are noted with hardware partially visualized. IMPRESSION: 1. Fusiform aneurysmal dilatation of the ascending thoracic aorta to maximal diameter of 45 mm is stable to CT from 08/14/2017. 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 2. Dilatation of the main pulmonary artery measuring 42 mm in diameter is also stable and suggestive of pulmonary arterial hypertension. [facility]-[id number] Performing Organization Address City/State/Zipcode Phone Number [facility] [address] [place] [address] * Estimated GFR (06/04/2018 9:14 AM CDT) GFR Non Af Amer >90 mL/min/1.73 m2 [facility] OF PATHOLOGY AND GENOMIC MEDICINE GFR Af Amer >90 mL/min/1.73 m2 [facility] Comment: OF PATHOLOGY Chronic kidney disease: <60 AND GENOMIC mL/min/1.73m2 MEDICINE Kidney failure: <15 mL/min/1.73m2 The estimated GFR is calculated from the IDMS-traceable Modification of Diet in Renal Disease Equation. The accuracy of the calculation is poor when the creatinine is normal. Calculated values >90 mL/min/1.73m2 are not reported. This equation has not been validated in children (<18 years), women, the elderly (>70 years), or ethnic groups other than Caucasians and Americans. Specimen Plasma specimen Performing Organization Address City/State/Zipcode Phone Number [place] [address] [place] [address] PATHOLOGY AND GENOMIC MEDICINE * Testosterone (06/04/2018 9:14 AM CDT) Testosterone 374 193 - 740 ng/dL [facility] DEPARTMENT OF PATHOLOGY AND GENOMIC MEDICINE Specimen Plasma specimen Performing Organization Address [facility] Phone Number [facility] DEPARTMENT OF [address] [place] [address] PATHOLOGY AND GENOMIC MEDICINE * XR Bone Survey Skeletal (04/24/2018 11:48 AM CDT) Specimen Narrative Performed At EXAMINATION:XR BONE SURVEY SKELETAL [facility] CLINICAL HISTORY:D47.2 Monoclonal gammopathy, D47.2 COMPARISON:None. IMPRESSION: No suspicious focal blastic or lytic lesions are present. Marked degenerative changes throughout the cervical thoracic and lumbar spine. Postoperative changes in the cervical spine Degenerative changes through the shoulders hips and knees The bones are slightly osteopenic The gallbladder has been removed [id number] Procedure Note Hm Interface, Radiology Results Incoming - 04/24/2018 2:22 PM CDT EXAMINATION: XR BONE SURVEY SKELETAL CLINICAL HISTORY: D47.2 Monoclonal gammopathy, D47.2 COMPARISON: None. IMPRESSION: No suspicious focal blastic or lytic lesions are present. Marked degenerative changes throughout the cervical thoracic and lumbar spine. Postoperative changes in the cervical spine Degenerative changes through the shoulders hips and knees The bones are slightly osteopenic The gallbladder has been removed [id number] Performing Organization Address [facility] Phone Number [facility] [address] [place] [address] * Immunofixation, urine (04/12/2018 10:16 AM CDT) Interpretation Comment: Faint IgG heavy chain QUEST present. DIAGNOSTICS-KIKO ING II Specimen Urine Resulting Agency Comment Performing Organization Information: Site ID: [id number] Name: [facility] Address: [address] [place] [id number] Director: Dr. Miguel Villafana Performing Organization Address [facility] Phone Number [employer] [address] II * Immunofixation, serum (04/12/2018 10:16 AM CDT) Interpretation Comment: IgG lambda monoclonal QUEST band present. DIAGNOSTICS-KIKO ING II Specimen Blood Resulting Agency Comment Performing Organization Information: Site ID: [id number] Name: [facility] Address: [address] [place] [phone] Director: Dr. Miguel Villafana Performing Organization Address City/State/Zipcode Phone Number [facility] [address] [place] [address] II after 03/22/2018 Insurance Type Payer Benefit Subscriber ID Effective Phone Address Plan / Dates Group Medicare MEDICARE MEDICARE xxxxxxxxxxx 2010- ORTIZ, PART A AND Present [place] B xxxxxxxxx 2013-P FOR LIFE resent Advance Directives Patient has advance care planning documents on file. For more information, junie gaffney contact: Angel Fitzgerald [address] [place] [address]
--- NOTE | 2019-03-23 17:39 | Operative Report ---
DATE OF PROCEDURE: 03/23/2019 SURGEON: Yaakov Witt MD PROCEDURES: 1. Esophagogastroduodenoscopy with biopsies. 2. Colonoscopy with polypectomy. INDICATIONS FOR EGD: Excessive postprandial bloating, nausea. INDICATIONS FOR COLONOSCOPY: Surveillance colonoscopy and personal history of colon polyps. MEDICATION: The patient was done under MAC, please see anesthesiologist's note. PROCEDURE IN DETAIL: With the patient in left lateral decubitus position, a flexible fiberoptic Olympus gastroscope was introduced into the esophagus under direct visualization without any difficulty. There was some patchy erythema noted in the distal esophagus. The mucosa overlying the antrum and the body revealed some diffuse erythema and moderate edema and biopsies were obtained and sent to stain for H pylori. The pylorus was of normal contour and shape. It was intubated with ease and the scope was advanced all the way to the second portion of the duodenum. Biopsies were obtained from the second portion and the duodenal bulb to rule out sprue. The scope was then withdrawn back into the stomach and retroflexed and the mucosa overlying the fundus and the cardia appeared to be within normal limits. The scope was then straightened out, it was subsequently withdrawn. The patient tolerated the procedure well. IMPRESSION: 1. Distal esophagitis. 2. Gastritis, biopsied, biopsies sent to stain for Helicobacter pylori. 3. Rule out sprue. PLAN: Follow up histology. Initiate Protonix 40 mg one p.o. q.a.m. a.c. The patient was then turned around. After adequate lubrication of the anal canal, a flexible fiberoptic Olympus colonoscope was inserted into the rectum with ease and advanced all the way to the cecum. Mucosa overlying the cecum appeared to be within normal limits. The scope was then withdrawn slowly and one approximately 6 mm sessile polyp was snared and was hemoclipped. Additional two ascending colon polyps up to 1.2 cm in size. One polyp was removed per snare electrocautery and the other polyp was removed piecemeal. One polyp was snared from the transverse colon. Three polyps were hot biopsied from the descending colon. Two polyps were hot biopsied from the sigmoid. The rectum appeared to be within normal limits. The scope was then retroflexed into the distal rectum and moderate-sized internal hemorrhoids were noted, none of which was actively bleeding. The scope was then straightened out, it was subsequently withdrawn. The patient tolerated the procedure well. IMPRESSION: 1. Ascending colon polyps x3 up to 1.2 cm in size. One polyp was snared and hemoclipped, an additional polyp was snared and one polyp was removed piecemeal. 2. Transverse colon polyp snared. 3. Descending colon polyps x3, hot biopsied. 4. Sigmoid colon polyps x2, hot biopsied. 5. Internal hemorrhoids, none actively bleeding. PLAN: Followup histology. Initiate high-fiber, low-fat diet. Initiate high-fiber supplement. Timing of followup colonoscopy pending pathology report. Yaakov Witt MD [facility] [place] /[id number]
== END | disposition home or self-care (01) ==
LOC: OR 11:52
PROVIDERS: ATTEND Internal Medicine Gastroenterology
DX: K29.50 Unspecified chronic gastritis without bleeding (principal); D12.4 Benign neoplasm of descending colon; D12.2 Benign neoplasm of ascending colon; D12.3 Benign neoplasm of transverse colon; B96.81 Helicobacter pylori [H. pylori] as the cause of diseases classified elsewhere; K29.80 Duodenitis without bleeding; K20.9 Esophagitis, unspecified; K64.8 Other hemorrhoids; J45.909 Unspecified asthma, uncomplicated; I10 Essential (primary) hypertension; G47.33 Obstructive sleep apnea (adult) (pediatric); M19.90 Unspecified osteoarthritis, unspecified site; Z01.810 Encounter for preprocedural cardiovascular examination; Z01.812 Encounter for preprocedural laboratory examination; Z79.82 Long term (current) use of aspirin
CPT/HCPCS: 36415; 43239; 45384; 45385; 45388; 85025; 88305; 88312; 88342; 93005; J1610; J1980; J2250; J2704; J3010